=== PATIENT | female | born 1965 | race American Indian/Alaskan Native ===

== ENCOUNTER 2018-07-19 15:19 | Emergency (ER) | payer MEDICAID ==
--- NOTE | 2018-07-19 16:04 | Emergency Department Report ---
Blank Doc - Documentation Documentation: pt states that she got a laceration to the right hand happened at 1 PM cut with a knife unsure of last tetanus immunization
[2018-07-19 16:08] VITALS: BP 201/91
[2018-07-19] MEDS ORDERED: XYLOCAINE 1% MPF 5 mL INFILTRATI ONE (17:22)
[2018-07-19] MEDS ORDERED: TYLENOL PO ONE (17:22)
[2018-07-19] MEDS ORDERED: BOOSTRIX IM ONE (17:26)
--- NOTE | 2018-07-19 17:31 | Emergency Department Report ---
ED Laceration HPI - HPI Chief Complaint: Wound/Laceration Stated Complaint: RT HAND CUT/PAIN Time Seen by Provider: 07/19/18 16:02 Occurred When: Today Severity: mild Tetanus Status: Unknown Laceration Symptoms: Yes Pain, No Foreign Body Sensation, No Numbness, No Weakness Other History: 53-year-old -[place] female comes in with no past medical history states that she cut her right hand with the knife approximately 1 PM today. Patient is unsure of her tetanus status. ED Review of Systems ROS: Stated complaint: RT HAND CUT/PAIN Other details as noted in HPI Comment: All other systems reviewed and negative Neurological: other (cut on right hand) ED Past Medical Hx - Past Medical History Previous Medical History?: No - Surgical History Additional Surgical History: C/s, [place] - Social History Smoking Status: Never Smoker Substance Use Type: None Laceration Physical Exam - Exam General: Vital signs noted. No distress. Alert and acting appropriately. Wound Length (cm): 2 Laceration Location: Upper Extremity (right hand) Laceration Exam: Yes Normal Distal CMS, No Foreign Body, No Exposed Tendon, Vessel, or Nerve, No Tendon Injury ED Course Vital Signs 07/19/18 16:04 Temperature 97.8 F Pulse Rate 91 H Respiratory 18 Rate Blood Pressure 201/91 O2 Sat by Pulse 99 Oximetry - Laceration /Wound Repair Right Dorsal Hand Wound Location: upper extremity Wound Length (cm): 2 Wound's Depth, Shape: into muscle Wound Explored: no foreign body removed Irrigated w/ Saline (ccs): 30 Betadine Prep?: Yes Anesthesia: 1% Lidocaine Volume Anesthetic (ccs): 3 Wound Debrided: minimal Wound Repaired With: sutures Suture Size/Type: 5:0 Sterile Dressing Applied?: Yes Progress: Tolerated well Critical care attestation.: If time is entered above; I have spent that time in minutes in the direct care of this critically ill patient, excluding procedure time. ED Disposition Clinical Impression: Laceration of hand Qualifiers: Encounter type: initial encounter Foreign body presence: with foreign body Laterality: right Qualified Code(s): S61.421A - Laceration with foreign body of right hand, initial encounter Disposition: TO HOME OR SELFCARE Is pt being admited?: No Does the pt Need Aspirin: No Condition: Stable Instructions: Suture Care (ED), Laceration (ED) Additional Instructions: Returned back to the emergency room in 5-7 days to have sutures removed from hand. Please return sooner if there is any signs of infection such as increased swelling redness purulent discharge or fever. Referrals: DARREL BAILEY MD [Primary Care Provider] - 3-5 Days
== END 2018-07-19 19:01 | disposition home or self-care (01) ==
LOC: ED 15:19
DX: S61.421A Laceration with foreign body of right hand, initial encounter (principal); Z88.5 Allergy status to narcotic agent; W26.0XXA Contact with knife, initial encounter; Y93.89 Activity, other specified; Y92.89 Other specified places as the place of occurrence of the external cause; Y99.8 Other external cause status
CPT/HCPCS: 90471; 90715; 99282